=== PATIENT | female | born 1995 | race African-American/Black ===

== ENCOUNTER 2020-03-24 09:29 | Emergency (ER) | payer MEDICAID ==
[~2020-03-24] VITALS: Ht 154.9 cm; Wt 63.5 kg
[2020-03-24 10:05] LABS: HEMATOCRIT. 32.2 % (36.0-48.0); HEMOGLOBIN. 10.8 g/dL (12.0-16.0); MEAN CORPUSCULAR HEMOGLOBIN 29.3 pg (28.0-32.0); MEAN CORPUSCULAR VOLUME 87.4 fL (81.0-99.0); MEAN PLATELET VOLUME 8.7 fl (7.4-10.4); PLATELET 271 x1000/uL (130-400); RED BLOOD CELL COUNT 3.68 mill/uL (4.2-5.4); RED CELL DISTRIBUTION WIDTH 16.3 % (11.6-14.6)
[2020-03-24 10:12] LABS: CHLORIDE 106 mEq/L (98-107)
[2020-03-24 10:16] LABS: ETHANOL BLOOD < 10 mg/dL
[2020-03-24 10:28] LABS: PLATELET ESTIMATE NORMAL
[2020-03-24 10:50] LABS: CLARITY URINE CLOUDY (CLEAR); COLOR URINE DARK YELLOW (YELLOW); KETONES URINE TRACE (NEGATIVE); LEUKOCYTE ESTERASE URINE 2+ (NEGATIVE); NITRITE URINE NEGATIVE (NEGATIVE); OCCULT BLOOD URINE TRACE (NEGATIVE); PROTEIN URINE 1+ (NEGATIVE); SPECIFIC GRAVITY URINE 1.035 (1.005-1.030)
[2020-03-24 11:20] LABS: *BENZODIAZEPINES SCREEN URINE NEGATIVE (NEGATIVE); METHADONE URINE SCREEN NEGATIVE (NEGATIVE); OPIATES URINE SCREEN NEGATIVE (NEGATIVE); PHENCYCLIDINE URINE SCREEN NEGATIVE (NEGATIVE)
[2020-03-24 11:21] LABS: *BARBITURATES SCREEN URINE NEGATIVE (NEGATIVE)
[2020-03-24 11:23] LABS: *AMPHETAMINES SCREEN URINE PRESUMTIVE POSITIVE (NEGATIVE); *COCAINE SCREEN URINE PRESUMTIVE POSITIVE (NEGATIVE); CANNABINOID URINE SCREEN PRESUMTIVE POSITIVE (NEGATIVE)
[2020-03-24] MEDS ORDERED: OLANZAPINE 5MG TABLET ODT PO ONE (16:15)
[2020-03-24] MEDS ORDERED: LORAZEPAM 1MG TABLET PO ONE (16:15)
[2020-03-25 07:25] VITALS: BP 129/85
[2020-03-25] MEDS ORDERED: CEPHALEXIN 250MG CAPSULE PO ONE (09:45)
== END 2020-03-25 10:51 | disposition home or self-care (01) ==
LOC: ER 09:36
DX: F19.10 Other psychoactive substance abuse, uncomplicated (principal); N39.0 Urinary tract infection, site not specified; F14.10 Cocaine abuse, uncomplicated
CPT/HCPCS: 36415; 80053; 80305; 80320; 81003; 85025; 93005; 99285; G0480

== ENCOUNTER 2020-04-17 13:58 | Emergency (ER) | payer MEDICAID ==
[~2020-04-17] VITALS: Ht 165.1 cm; Wt 60.0 kg
[2020-04-17] MEDS ORDERED: SODIUM CHLORIDE 0.9% 1,000 ML IV ONE (14:24)
[2020-04-17] MEDS ORDERED: ONDANSETRON HCL 4MG/2ML INJ IV STA (14:24)
[2020-04-17 14:54] LABS: BASOPHILS % 0.3 % (0.0-2.0); EOSINOPHILS % 0.9 % (0.0-5.0); HEMOGLOBIN. 11.3 g/dL (12.0-16.0); LYMPHOCYTES % 12.7 % (20.0-50.0); MEAN CORPUSCULAR HEMOGLOBIN 29.3 pg (28.0-32.0); MEAN CORPUSCULAR VOLUME 87.7 fL (81.0-99.0); MONOCYTES % 14.8 % (2.0-8.0); NEUTROPHILS % 71.3 % (40.0-76.0); RED BLOOD CELL COUNT 3.88 mill/uL (4.2-5.4); RED CELL DISTRIBUTION WIDTH 15.7 % (11.6-14.6)
[2020-04-17 14:58] LABS: CHLORIDE 103 mEq/L (98-107)
[2020-04-17 15:03] LABS: ETHANOL BLOOD < 10 mg/dL
[2020-04-17 15:24] LABS: HCG SCREEN NEGATIVE
[2020-04-17 17:00] VITALS: BP 101/48
[2020-04-17 17:56] LABS: CLARITY URINE CLOUDY (CLEAR); COLOR URINE DARK YELLOW (YELLOW); KETONES URINE 1+ (NEGATIVE); LEUKOCYTE ESTERASE URINE 3+ (NEGATIVE); NITRITE URINE NEGATIVE (NEGATIVE); OCCULT BLOOD URINE NEGATIVE (NEGATIVE); PROTEIN URINE 1+ (NEGATIVE); SPECIFIC GRAVITY URINE 1.027 (1.005-1.030)
[2020-04-17] MEDS ORDERED: NITROFURANTOIN 100MG M/M CAPSULE PO ONE (18:15)
[2020-04-17 18:55] LABS: *BARBITURATES SCREEN URINE NEGATIVE (NEGATIVE); *BENZODIAZEPINES SCREEN URINE NEGATIVE (NEGATIVE); *COCAINE SCREEN URINE NEGATIVE (NEGATIVE); METHADONE URINE SCREEN NEGATIVE (NEGATIVE)
[2020-04-17 18:56] LABS: OPIATES URINE SCREEN NEGATIVE (NEGATIVE)
[2020-04-17 19:08] LABS: *AMPHETAMINES SCREEN URINE PRESUMTIVE POSITIVE (NEGATIVE)
[2020-04-17 19:09] LABS: CANNABINOID URINE SCREEN PRESUMTIVE POSITIVE (NEGATIVE); PHENCYCLIDINE URINE SCREEN PRESUMTIVE POSITIVE (NEGATIVE)
== END 2020-04-17 19:00 | disposition left against medical advice (07) ==
LOC: ER 14:08
DX: F29 Unspecified psychosis not due to a substance or known physiological condition (principal); F14.10 Cocaine abuse, uncomplicated; F12.10 Cannabis abuse, uncomplicated; F15.10 Other stimulant abuse, uncomplicated
CPT/HCPCS: 36415; 80053; 80305; 80307; 80320; 80329; 81003; 84703; 85025; 87086; 93005; 99284; J7030; G0480

== ENCOUNTER 2020-04-18 11:53 | Emergency (ER) | payer MEDICAID ==
[~2020-04-18] VITALS: Ht 170.2 cm; Wt 64.0 kg
[2020-04-18] MEDS ORDERED: NITROFURANTOIN 100MG M/M CAPSULE PO ONE (12:30)
[2020-04-18 13:00] LABS: HEMATOCRIT. 33.5 % (36.0-48.0); HEMOGLOBIN. 11.3 g/dL (12.0-16.0); MEAN CORPUSCULAR HEMOGLOBIN 29.8 pg (28.0-32.0); MEAN CORPUSCULAR VOLUME 88.4 fL (81.0-99.0); MEAN PLATELET VOLUME 8.7 fl (7.4-10.4); PLATELET 283 x1000/uL (130-400); RED BLOOD CELL COUNT 3.79 mill/uL (4.2-5.4); RED CELL DISTRIBUTION WIDTH 15.7 % (11.6-14.6)
[2020-04-18 13:06] LABS: CHLORIDE 104 mEq/L (98-107)
[2020-04-18 13:11] LABS: ETHANOL BLOOD < 10 mg/dL
[2020-04-18 13:29] LABS: PLATELET ESTIMATE NORMAL
[2020-04-18] MEDS ORDERED: LORAZEPAM 2MG/ML CPJ IM ONE (14:45)
[2020-04-19 08:48] LABS: CLARITY URINE CLOUDY (CLEAR); COLOR URINE DK YELLOW (YELLOW); KETONES URINE TRACE (NEGATIVE); LEUKOCYTE ESTERASE URINE 3+ (NEGATIVE); NITRITE URINE NEGATIVE (NEGATIVE); OCCULT BLOOD URINE NEGATIVE (NEGATIVE); PH URINE 5.5 (4.5-8.0); PROTEIN URINE NEGATIVE (NEGATIVE); SPECIFIC GRAVITY URINE 1.025 (1.005-1.030)
[2020-04-19 09:45] LABS: *BARBITURATES SCREEN URINE NEGATIVE (NEGATIVE)
[2020-04-19 09:47] LABS: *BENZODIAZEPINES SCREEN URINE NEGATIVE (NEGATIVE); *COCAINE SCREEN URINE NEGATIVE (NEGATIVE); METHADONE URINE SCREEN NEGATIVE (NEGATIVE); OPIATES URINE SCREEN NEGATIVE (NEGATIVE)
[2020-04-19 09:49] LABS: *AMPHETAMINES SCREEN URINE PRESUMTIVE POSITIVE (NEGATIVE); CANNABINOID URINE SCREEN PRESUMTIVE POSITIVE (NEGATIVE); PHENCYCLIDINE URINE SCREEN PRESUMTIVE POSITIVE (NEGATIVE)
[2020-04-19] MEDS: QUETIAPINE FUMARATE 50MG TABLET PO SCH ×3 (10:35→17:56)
[2020-04-19] MEDS: HALOPERIDOL LACTATE 5MG/ML VIAL IM PRN (12:10)
[2020-04-19] MEDS: DIPHENHYDRAMINE 50MG/ML VIAL IM PRN (12:10)
[2020-04-19] MEDS: LORAZEPAM 2MG/ML CPJ IM PRN (12:10)
[2020-04-19] MEDS ORDERED: CEFTRIAXONE SODIUM 1 G/VIAL IM ONE (17:00)
[2020-04-20] MEDS: QUETIAPINE FUMARATE 50MG TABLET PO SCH ×4 (01:43→21:00)
[2020-04-20] MEDS: LORAZEPAM 2MG/ML CPJ IM PRN ×2 (12:28→23:51)
[2020-04-20] MEDS: HALOPERIDOL LACTATE 5MG/ML VIAL IM PRN (12:28)
[2020-04-20] MEDS: DIPHENHYDRAMINE 50MG/ML VIAL IM PRN (23:51)
[2020-04-21 22:11] VITALS: BP 114/68
== END 2020-04-21 22:20 ==
LOC: ER 11:53
DX: F99 Mental disorder, not otherwise specified (principal); N39.0 Urinary tract infection, site not specified; R26.9 Unspecified abnormalities of gait and mobility; R45.851 Suicidal ideations; F91.8 Other conduct disorders; F16.10 Hallucinogen abuse, uncomplicated; F14.10 Cocaine abuse, uncomplicated; F12.10 Cannabis abuse, uncomplicated; F15.10 Other stimulant abuse, uncomplicated; Z75.1 Person awaiting admission to adequate facility elsewhere
CPT/HCPCS: 36415; 80053; 80307; 80320; 80329; 84443; 85025; 87426; 96372; 99285; C9803; J0696; J1200; J1630; J2060; U0003; Z7610; G0480

== ENCOUNTER 2020-05-17 02:59 | Emergency (ER) | payer MEDICAID ==
[~2020-05-17] VITALS: Ht 177.8 cm; Wt 68.0 kg
[2020-05-17] MEDS ORDERED: OLANZAPINE 5MG TABLET ODT PO ONE (05:15)
[2020-05-17 05:26] LABS: BASOPHILS % 0.3 % (0.0-2.0); EOSINOPHILS % 2.1 % (0.0-5.0); HEMATOCRIT. 30.7 % (36.0-48.0); HEMOGLOBIN. 10.2 g/dL (12.0-16.0); LYMPHOCYTES % 25.1 % (20.0-50.0); MONOCYTES % 14.1 % (2.0-8.0); NEUTROPHILS % 58.4 % (40.0-76.0); PLATELET 259 x1000/uL (130-400); RED BLOOD CELL COUNT 3.53 mill/uL (4.2-5.4); RED CELL DISTRIBUTION WIDTH 15.3 % (11.6-14.6)
[2020-05-17 05:32] LABS: CHLORIDE 105 mEq/L (98-107)
[2020-05-17 05:38] LABS: ETHANOL BLOOD < 10 mg/dL
[2020-05-17 08:08] LABS: CLARITY URINE CLEAR (CLEAR); COLOR URINE YELLOW (YELLOW); KETONES URINE NEGATIVE (NEGATIVE); LEUKOCYTE ESTERASE URINE 2+ (NEGATIVE); NITRITE URINE NEGATIVE (NEGATIVE); OCCULT BLOOD URINE NEGATIVE (NEGATIVE); PH URINE 6.5 (4.5-8.0); PROTEIN URINE NEGATIVE (NEGATIVE); SPECIFIC GRAVITY URINE 1.014 (1.005-1.030); UROBILINOGEN URINE 0.2 E.U./dL (0.2-1.0)
[2020-05-17 08:30] VITALS: BP 92/58
[2020-05-17 08:40] LABS: *AMPHETAMINES SCREEN URINE NEGATIVE (NEGATIVE); *BARBITURATES SCREEN URINE NEGATIVE (NEGATIVE); *BENZODIAZEPINES SCREEN URINE NEGATIVE (NEGATIVE); *COCAINE SCREEN URINE NEGATIVE (NEGATIVE); CANNABINOID URINE SCREEN NEGATIVE (NEGATIVE)
[2020-05-17 08:41] LABS: METHADONE URINE SCREEN NEGATIVE (NEGATIVE); OPIATES URINE SCREEN NEGATIVE (NEGATIVE); PHENCYCLIDINE URINE SCREEN NEGATIVE (NEGATIVE)
== END 2020-05-17 09:48 | disposition home or self-care (01) ==
LOC: ER 02:59
DX: S80.812A Abrasion, left lower leg, initial encounter (principal); F29 Unspecified psychosis not due to a substance or known physiological condition; Z04.6 Encounter for general psychiatric examination, requested by authority; X58.XXXA Exposure to other specified factors, initial encounter; Y93.89 Activity, other specified; Y92.89 Other specified places as the place of occurrence of the external cause; Y99.8 Other external cause status
CPT/HCPCS: 36415; 80053; 80305; 80307; 80320; 80329; 81003; 82962; 85025; 99283; G0480

== ENCOUNTER 2022-06-12 19:54 | Emergency (ER) | payer MEDICAID ==
[~2022-06-12] VITALS: Ht 172.7 cm; Wt 95.0 kg
[2022-06-12 20:37] VITALS: BP 114/78
== END 2022-06-12 20:40 ==
LOC: ER 20:06
DX: S00.81XA Abrasion of other part of head, initial encounter (principal); Z86.59 Personal history of other mental and behavioral disorders; X58.XXXA Exposure to other specified factors, initial encounter; Y93.89 Activity, other specified; Y92.89 Other specified places as the place of occurrence of the external cause; Y99.8 Other external cause status
CPT/HCPCS: 99283